=== PATIENT | female | born 1985 | race Two or more races ===

== ENCOUNTER 2019-05-11 09:24 | Outpatient (CLI) | payer OTHER ==
[~2019-05-11 09:24] MED LIST: IRON325 MG PO; PRENATAL TABLE1 EAC1 PO
== END 2019-05-11 09:27 | disposition home or self-care (01) ==
LOC: MAMO-SONO 09:24
DX: Z12.31 Encounter for screening mammogram for malignant neoplasm of breast (principal); Z87.898 Personal history of other specified conditions; N63.10 Unspecified lump in the right breast, unspecified quadrant; N63.20 Unspecified lump in the left breast, unspecified quadrant; N64.4 Mastodynia; N60.11 Diffuse cystic mastopathy of right breast

== ENCOUNTER → 2019-08-05 | Outpatient (CLI) | payer OTHER | END | disposition home or self-care (01) | LOC: RAD 09:17 | DX: I10 Essential (primary) hypertension (principal) ==

== ENCOUNTER 2020-11-29 12:36 | Inpatient (IN) | payer OTHER ==
[~2020-11-29] VITALS: Ht 162.6 cm; Wt 65.8 kg
[2020-11-29] MEDS ORDERED: SOOLANTRA45 GM (15:21)
[2020-12-02] MEDS ORDERED: LABETALOL HCL200 MG PO (09:42)
[2020-12-02] MEDS ORDERED: OXYC1TAB9 PO (09:42)
[2020-12-02] MEDS ORDERED: KETO10TA2 PO (09:42)
== END 2020-12-02 10:08 | disposition home or self-care (01) | DRG 788 ==
LOC: NST 12:36 → LDR 12:49 → SURG-SUITE 12:49 → LDR 13:05 → O/R 15:20 → SURG-SUITE 17:34
PROVIDERS: ADMIT Obstetrics & Gynecology Maternal & Fetal Medicine; ATTEND Obstetrics & Gynecology Maternal & Fetal Medicine
PROC: 4A1HXFZ Monitoring of Products of Conception, Cardiac Rhythm, External Approach (ICD-10-PCS; 2020-11-29)
PROC: 10D00Z1 Extraction of Products of Conception, Low, Open Approach (ICD-10-PCS; principal; 2020-11-29 14:00)
DX: O11.3 Pre-existing hypertension with pre-eclampsia, third trimester (principal); O64.1XX0 Obstructed labor due to breech presentation, not applicable or unspecified; Z3A.36 36 weeks gestation of pregnancy; Z37.0 Single live birth; Z20.822 Contact with and (suspected) exposure to COVID-19

== ENCOUNTER 2022-10-08 12:08 | Outpatient (CLI) | payer OTHER ==
[~2022-10-08 12:08] MED LIST changes: +KETO10TA2 PO; +LABETALOL HCL200 MG PO; +OXYC1TAB9 PO; +SOOLANTRA45 GM
== END 2022-10-08 16:15 | disposition home or self-care (01) ==
LOC: MAMO-SONO 12:08
PROVIDERS: ATTEND Obstetrics & Gynecology Maternal & Fetal Medicine
DX: Z12.31 Encounter for screening mammogram for malignant neoplasm of breast (principal); N63.0 Unspecified lump in unspecified breast; N64.4 Mastodynia; N60.11 Diffuse cystic mastopathy of right breast